=== PATIENT | female | born 2000 | race Caucasian/White ===

== ENCOUNTER 2024-01-19 19:53 | Inpatient (IN) | payer MEDICAID ==
[~2024-01-19] VITALS: Ht 157.5 cm; Wt 59.4 kg
[2024-01-19 21:11] LABS: APPEARANCE,URINE SLIGHTLY CLOUDY (CLEAR); BILIRUBIN,URINE NEGATIVE (NEGATIVE); BLOOD, URINE 2+ Ery/uL (NEGATIVE); COLOR,URINE YELLOW (YELLOW); KETONES,URINE TRACE mg/dL (NEGATIVE); LEUKOCYTE ESTERASE ,URINE NEGATIVE (NEGATIVE); NITRITE, URINE NEGATIVE (NEGATIVE); PH,URINE 6.5 (5.0-8.0); PROTEIN,URINE NEGATIVE (NEGATIVE); UGLUCOSE NEGATIVE (NEGATIVE)
[2024-01-19 21:21] LABS: PREGNANCY TEST URINE QUAL NEGATIVE (NEGATIVE)
[2024-01-19] MEDS ORDERED: ACETAMINOPHEN ES 500 MG TABLET ONE (21:21)
[2024-01-19] MEDS: ACETAMINOPHEN ES 500 MG TABLET PO ONE (21:24)
[2024-01-19 21:31] LABS: ADD URINE CULTURE NO; BACTERIA,URINE 1+ /HPF (None Seen); RBC,URINE 21-50 /HPF (0-2); WBC,URINE 0-2 /HPF (0-3)
[2024-01-19 21:32] LABS: MUCUS,URINE Few /LPF (None Seen); URINE AMORPHOUS URATE Many /HPF (None Seen)
[2024-01-19] MEDS ORDERED: IOHEXOL-300 100 ML VIAL IV ONE (21:35)
[2024-01-19] MEDS ORDERED: CT SWABBABLE VALVE TRANS SET 1 EA INFUS.SET MC ONE (21:36)
[2024-01-19] MEDS ORDERED: IV NS 0.9% 250 ML IV ONE (21:36)
[2024-01-19 22:41] LABS: BASOPHILS # (AUTO) 0.1 K/uL (0.0-0.2); BASOPHILS % (AUTO) 0.9 % (0.0-2.0); EOSINOPHILS # (AUTO) 0.1 K/uL (0.0-0.7); EOSINOPHILS % (AUTO) 0.7 % (0.0-6.0); HEMATOCRIT 34 % (33-45); HEMOGLOBIN 11.6 g/dL (11.5-14.8); LYMPHOCYTES # (AUTO) 1.2 K/uL (0.8-4.8); LYMPHOCYTES % (AUTO) 8.9 % (20.0-44.0); MEAN CORPUSCULAR HEMOGLOBIN 28 PG (26.0-33.0); MEAN CORPUSCULAR HGB CONC 34 g/dl (31.0-36.0); MEAN CORPUSCULAR VOLUME 82 fL (82-100); MONOCYTES % (AUTO) 7.2 % (2.0-12.0); NEUTROPHILS % (AUTO) 82.3 % (43.0-81.0); PLATELET COUNT (AUTO) 355 K/uL (150-450); RED BLOOD CELL COUNT(AUTO) 4.16 MIL/uL (4.0-5.2); RED CELL DISTRIBUTION WIDTH 13.5 % (11.5-15.0); WHITE BLOOD COUNT (AUTO) 13.4 K/uL (4.3-11.0)
[2024-01-19] MEDS ORDERED: LIDOCAINE 1%-EPI 1:100,000 20 ML VIAL ONE (22:45)
[2024-01-19] MEDS ORDERED: LIDOCAINE 2%-EPI 1:100,000 30 ML VIAL ONE (22:53)
[2024-01-19 23:21] LABS: CALCIUM, SERUM 8.9 mg/dL (8.5-10.1); CREATININE 0.8 mg/dL (0.6-1.3); POTASSIUM 3.8 mmol/L (3.5-5.1)
[2024-01-19 23:27] LABS: ALBUMIN 3.6 g/dL (3.4-5.0); BILIRUBIN,TOTAL 0.4 mg/dL (0.2-1.0); TOTAL PROTEIN, SERUM 8.2 g/dL (6.4-8.2)
[2024-01-19] MEDS ORDERED: VANCOMYCIN 1 GM /D5W 250 ML PB IV ONE (23:53)
[2024-01-19] MEDS ORDERED: CEFTRIAXONE 1GM BAG (ER ONLY) 50 ML IV ONE (23:53)
[2024-01-20] MEDS: CEFTRIAXONE 1GM BAG (ER ONLY) 1 GM/50 ML PIGGYBACK IV ONE
[2024-01-20] MEDS: VANCOMYCIN 1 GM in IV D5W 250 ML IV ONE (00:30)
[2024-01-20 01:27] VITALS: BP 118/77; TEMP 98; O2SAT 98
[2024-01-20] MEDS ORDERED: ZOLPIDEM TARTRATE 5 MG TABLET PO PRN (03:00)
[2024-01-20] MEDS ORDERED: ACETAMINOPHEN 325 MG TABLET PO PRN (03:00)
[2024-01-20] MEDS: IV D5/ 0.9% NACL 1,000 ML IV PRN (03:24)
[2024-01-20] MEDS ORDERED: CEFEPIME 1 GM VIAL ONE (04:26)
[2024-01-20] MEDS: CEFEPIME 1 GM VIAL IV SCH (04:31)
[2024-01-20] MEDS: CEFEPIME 1 GM in IV D5W 50 ML IV SCH (04:49)
[2024-01-20] MEDS: HYDROCODONE/APAP 5/325MG TABLET PO PRN (05:11)
[2024-01-20 07:26] LABS: BAND % (MANUAL) 3 % (0.0-5.0); LYMPHOCYTES % (MANUAL) 10 % (16-48); METAMYELOCYTES % 1 % (0-0); MONOCYTES % (MANUAL) 7 % (0-11.0); NEUTROPHILS % (MANUAL) 78 (42-76); PLATELET ESTIMATE ADEQUATE; REACTIVE LYMPHOCYTES 1 % (0-0)
[2024-01-20 07:31] LABS: BASOPHILS # (AUTO) 0.1 K/uL (0.0-0.2); BASOPHILS % (AUTO) 0.6 % (0.0-2.0); EOSINOPHILS # (AUTO) 0.1 K/uL (0.0-0.7); HEMATOCRIT 35 % (33-45); HEMOGLOBIN 11.9 g/dL (11.5-14.8); LYMPHOCYTES # (AUTO) 1.1 K/uL (0.8-4.8); LYMPHOCYTES % (AUTO) 9.6 % (20.0-44.0); MEAN CORPUSCULAR HEMOGLOBIN 28 PG (26.0-33.0); MEAN CORPUSCULAR HGB CONC 34 g/dl (31.0-36.0); MEAN CORPUSCULAR VOLUME 84 fL (82-100); MONOCYTES # (AUTO) 0.9 K/uL (0.1-1.30); MONOCYTES % (AUTO) 7.8 % (2.0-12.0); NEUTROPHILS # (AUTO) 9.6 K/uL (1.8-8.9); PLATELET COUNT (AUTO) 317 K/uL (150-450); RED BLOOD CELL COUNT(AUTO) 4.24 MIL/uL (4.0-5.2); RED CELL DISTRIBUTION WIDTH 13.4 % (11.5-15.0); WHITE BLOOD COUNT (AUTO) 11.8 K/uL (4.3-11.0)
[2024-01-20 07:40] LABS: CALCIUM, SERUM 8.5 mg/dL (8.5-10.1); CREATININE 0.6 mg/dL (0.6-1.3); POTASSIUM 3.6 mmol/L (3.5-5.1)
[2024-01-20 08:00] VITALS: BP 121/81; TEMP 98.2; O2SAT 100
[2024-01-20] MEDS: VANCOMYCIN 750 MG in IV D5W 250 ML IV SCH (08:21)
[2024-01-20] MEDS: Potassium Chloride 10 MEQ in IV D5/ 0.9% NACL 1,000 ML IV SCH (09:45)
[2024-01-20 10:51] LABS: BAND % (MANUAL) 1 % (0.0-5.0); EOSINOPHILS % (MANUAL) 2 % (0-4); LYMPHOCYTES % (MANUAL) 10 % (16-48); METAMYELOCYTES % 2 % (0-0); MONOCYTES % (MANUAL) 8 % (0-11.0); MYELOCYTES % 1 % (0-0); NEUTROPHILS % (MANUAL) 75 (42-76); PROMYELOCYTES % 1 % (0-0)
[2024-01-20 10:52] LABS: PLATELET ESTIMATE ADEQUATE
[2024-01-20] MEDS ORDERED: PIPERACILLIN /TAZOBACTAM 3.375 G in IV D5W 50 ML IV SCH (12:00)
[2024-01-20] MEDS: PIPERACILLIN /TAZOBACTAM 3.375 G in IV D5W 100 ML IV SCH (12:24)
[2024-01-20 14:50] VITALS: BP 103/63; TEMP 99.7; O2SAT 99
[2024-01-20] MEDS ORDERED: ANESTHESIA TRAY IN PYXIS 1 EA TRAY MC ONE (14:51)
[2024-01-20] MEDS ORDERED: FENTANYL PF 100MCG/2ML AMPUL ONE (15:07)
[2024-01-20] MEDS ORDERED: MIDAZOLAM HCL 2 MG/2ML VIAL ONE (15:08)
[2024-01-20] MEDS ORDERED: IV LR 1000 ML 1,000 ML IV PRN (17:30)
[2024-01-20 20:00] VITALS: BP 103/58; TEMP 98.4; O2SAT 96
[2024-01-20] MEDS: ANCEF 1 GM/50 ML D5W IV SCH (23:13)
[2024-01-21] MEDS ORDERED: ACETAMINOPHEN 650 MG/20.3 ML UDC NG PRN (06:30)
[2024-01-21] MEDS ORDERED: ACETAMINOPHEN 650 MG/20.3 ML UDC PO PRN (06:30)
[2024-01-21 08:00] VITALS: BP 99/63; TEMP 97.3; O2SAT 99
[2024-01-21] MEDS: CELECOXIB 100 MG CAPSULE PO SCH (08:28)
[2024-01-21] MEDS: GABAPENTIN 100 MG CAPSULE PO SCH (08:28)
[2024-01-21 08:36] LABS: HEMATOCRIT 34 % (33-45); HEMOGLOBIN 11.2 g/dL (11.5-14.8); LYMPHOCYTES % (AUTO) 7.9 % (20.0-44.0); MEAN CORPUSCULAR HEMOGLOBIN 28 PG (26.0-33.0); MEAN CORPUSCULAR HGB CONC 33 g/dl (31.0-36.0); MEAN CORPUSCULAR VOLUME 84 fL (82-100); MONOCYTES # (AUTO) 0.7 K/uL (0.1-1.30); MONOCYTES % (AUTO) 5.5 % (2.0-12.0); NEUTROPHILS # (AUTO) 11.1 K/uL (1.8-8.9); NEUTROPHILS % (AUTO) 86.6 % (43.0-81.0); PLATELET COUNT (AUTO) 329 K/uL (150-450); RED CELL DISTRIBUTION WIDTH 13.3 % (11.5-15.0); WHITE BLOOD COUNT (AUTO) 12.8 K/uL (4.3-11.0)
[2024-01-21] MEDS ORDERED: AMOX-430 PO (08:44)
[2024-01-21] MEDS ORDERED: ACET-907 PO (08:44)
[2024-01-21 09:07] LABS: CALCIUM, SERUM 8.8 mg/dL (8.5-10.1); CREATININE 0.6 mg/dL (0.6-1.3); POTASSIUM 4.2 mmol/L (3.5-5.1)
== END 2024-01-21 13:53 | disposition home health service (06) | DRG 226 ==
LOC: ER 20:08 → MED 01-20 01:20
PROVIDERS: ADMIT Internal Medicine; ATTEND Internal Medicine
PROC: 0D9Q0ZZ Drainage of Anus, Open Approach (ICD-10-PCS; principal; 2024-01-20)
DX: K61.2 Anorectal abscess (principal); L03.315 Cellulitis of perineum; D64.9 Anemia, unspecified; D72.829 Elevated white blood cell count, unspecified
CPT/HCPCS: 36415; 72193-TC; 80048-TC; 80053-TC; 80202-TC; 81001; 84703-TC; 85025-TC; A4223; A6253; A6403; G0378; J0690; J0692; J0696; J1100; J1885; J2250; J2405; J2543; J2704; J2765; J3010; J3370; J3371; J3480; J3490; J7030; J7042; J7050; J7060; J7120; Q9967